=== PATIENT | female | born 1960 | race Two or more races ===

== ENCOUNTER 2016-11-05 13:05 | Emergency (ER) | payer BC ==
[~2016-11-05] VITALS: Ht 162.6 cm; Wt 72.6 kg
--- NOTE | 2016-11-05 13:15 | NUR ---
PT BIB [facility], DIZZINESS WHILE IN A MEETING AT WORK, BLOOD SUGAR 117. DENIES KO. NAD NOTED. PT AAOX3. HR NOTD AT 50'S, OTHER VSS. SEEN BY LESLIE BARRIOS FOR EVAL. SAFETY AND COMFORT MEASURES PROVIDED. WILL MONITOR.
[2016-11-05] MEDS ORDERED: IV NS 0.9% 500 ML IV ONE (13:22)
[2016-11-05] MEDS ORDERED: LIDOCAINE /MPF 1% VIAL 5 ML VIAL ONE (13:34)
[2016-11-05] MEDS: IV NS 0.9% 500 ML BAG IV ONE (13:45)
[2016-11-05 13:48] LABS: BASOPHILS % (AUTO) 0.3 % (0.0-2.0); EOSINOPHILS # (AUTO) 0.6 /CMM (0.0-0.7); EOSINOPHILS % (AUTO) 8.8 % (0.0-6.0); HEMATOCRIT 35 % (33-45); HEMOGLOBIN 11.6 g/dL (11.5-14.8); LYMPHOCYTES # (AUTO) 2.2 /CMM (0.8-4.8); LYMPHOCYTES % (AUTO) 33.5 % (20.0-44.0); MEAN CORPUSCULAR HEMOGLOBIN 29 PG (26.0-33.0); MEAN CORPUSCULAR HGB CONC 33 g/dl (31.0-36.0); MEAN CORPUSCULAR VOLUME 87 fL (82-100); MONOCYTES # (AUTO) 0.5 /CMM (0.1-1.30); MONOCYTES % (AUTO) 7.1 % (2.0-12.0); NEUTROPHILS # (AUTO) 3.3 /CMM (1.8-8.9); NEUTROPHILS % (AUTO) 50.3 % (43.0-81.0); PLATELET COUNT (AUTO) 273 /CMM (150-450); RDW COEFFICIENT OF VARIATION 13.5 (11.5-15.0); RED BLOOD CELL COUNT(AUTO) 3.96 MIL/uL (4.0-5.2); WHITE BLOOD COUNT (AUTO) 6.6 K/uL (4.3-11.0)
--- NOTE | 2016-11-05 13:50 | NUR ---
PT TAKEN TO CT.
[2016-11-05 13:59] LABS: CALCIUM, SERUM 9.5 mg/dL (8.5-10.1); CARBON DIOXIDE 30 mmol/L (21-32); CHLORIDE 108 mmol/L (98-107); CREATININE 0.7 mg/dL (0.6-1.3); GLUCOSE 101 mg/dL (74-106); POTASSIUM 4.2 mmol/L (3.5-5.1); SODIUM SERUM 143 mmol/L (136-145); UREA NITROGEN, BLOOD 7 mg/dL (7-18)
[2016-11-05 14:02] LABS: INR 0.93 (0.87-1.13); PROTHROMBIN TIME 9.7 SECS (9.5-12.7)
[2016-11-05 14:08] LABS: TROPONIN I < 0.017 ng/mL (0.00-0.056)
--- NOTE | 2016-11-05 14:40 | NUR ---
VEGETARIAN FOOD TRAY PROVIDED PER PT REQUEST.
--- NOTE | 2016-11-05 14:43 | NUR ---
PAGED [employer] FOR PANEL
--- NOTE | 2016-11-05 15:16 | NUR ---
Patient discharged to home in stable condition. Written and verbal after care instructions given. Patient verbalizes understanding of instruction.
[2016-11-05 15:17] VITALS: BP 141/88
== END 2016-11-05 15:18 | disposition home or self-care (01) ==
LOC: ER 13:07
DX: R00.1 Bradycardia, unspecified (principal); R53.1 Weakness; F32.9 Major depressive disorder, single episode, unspecified; M54.2 Cervicalgia; R79.1 Abnormal coagulation profile; G89.29 Other chronic pain; Z98.84 Bariatric surgery status; Z98.890 Other specified postprocedural states
CPT/HCPCS: 36415; 70450; 71010; 80048; 84484; 85025; 85730; 93005; 99285; A4606; J3490; J7040; Z7610